=== PATIENT | female | born 1995 | race Caucasian/White ===

== ENCOUNTER 2021-09-20 03:04 | Emergency (ER) | payer MEDICAID, SELFPAY ==
[2021-09-20 03:13] VITALS: BP 139/93; PULSE 117; RESP 18; TEMP 36.7; O2SAT 95
--- NOTE | 2021-09-20 03:23 | W.ED.GENAD ---
Discharge Plan Disposition Patient Disposition: HOME Condition: Good Discharge Details Clinical Impression: URI (upper respiratory infection) Primary Care Provider: Unknown,Unknown ED Provider: Pepe Garner Home Meds and New Rx's Prescriptions: New doxycycline hyclate 100 mg tablet 100 mg PO BID Qty: 20 RF: 0 loratadine 10 mg capsule 10 mg PO DAILY Qty: 14 RF: 0 Discharge Instructions Instructions: Upper Respiratory Infection (ED) Additional Instructions: At this time your symptoms appear consistent with a mild viral upper respiratory infection. You have been tested for Covid and you will be contacted with the results. Please take the loratadine as directed to help with your congestion. Use the Brianna pot as we discussed together. If your symptoms persist and you develop fever, worsening cough, and productive sputum please take the antibiotic as directed, otherwise I would not use the antibiotic. Please stop smoking. If you notice any worsening of your symptoms, or any new symptoms such as vomiting, diarrhea, fever, chills, shortness of breath, chest pain, numbness, weakness, or fainting , please return immediately to the emergency department for reevaluation. Please follow up with your primary care provider as soon as possible for reassessment and reevaluation. As always, it was a pleasure participating in your medical care today. Medical Decision Making 26-year-old female presents today for evaluation of cough, congestion. Patient states it is been present for the last day or 2. She does work at a local [employer]. She has not received her Covid vaccine. She denies any fever or chills. She denies any hemoptysis. She denies any pleuritic chest pain. She is not on any control. No other complaints at this time. She denies any other sick contacts. Physical exam is unremarkable, lung sounds clear. Mild subjective congestion. Minimally erythematous posterior oropharynx, no tonsillar enlargement or exudate. Symptoms consistent with a mild viral upper respiratory infection. Will recommend loratadine as an outpatient basis. We will Covid test here. Recommend that she starts taking antibiotic if she develops fever, cough, or worsening symptoms. Discussed red flags which to return. I have extensively reviewed the treatment plan and discharge instructions with the patient. I have addressed all patient concerns at this time. The patient was made aware of what symptoms to monitor for that would warrant a return to the emergency department. Discussed the plan with the patient, they demonstrate verbal understanding and agreement with our assessment and plan at this time. The documentation in this chart was dictated using [email or web address] dictation software. Please excuse any dictation errors. HPI General Date/Time Provider Initiated Documentation: 09/20/21 03:12. HPI Narrative: 26-year-old female presents today for evaluation of cough, congestion. Patient states it is been present for the last day or 2. She does work at a local gas station. She has not received her Covid vaccine. She denies any fever or chills. She denies any hemoptysis. She denies any pleuritic chest pain. She is not on any control. No other complaints at this time. She denies any other sick contacts. Related Data Home Medications Medication Instructions Recorded Confirmed doxycycline hyclate 100 mg PO BID #20 tab 09/20/21 loratadine 10 mg PO DAILY #14 cap 09/20/21 Previous Rx's Medication Instructions Recorded doxycycline hyclate 100 mg PO BID #20 tab 09/20/21 loratadine 10 mg PO DAILY #14 cap 09/20/21 General Stated Complaint: RespSymp BASILIA: 4 Review of Systems All systems reviewed & are unremarkable except as noted in HPI and below PFSH All Active Problems URI (upper respiratory infection) (Acute) Social History Smoking/Tobacco Use Status: Current every day Tobacco Type: cigarettes Smoking risk assessment performed?: Yes Alcohol Intake: never Drug use: Never Substance use type: does not use Do you feel safe at home: Yes Do you feel safe in your relationship?: Yes Exam Narrative Exam Narrative: 1.Const: Well-nourished, Well-developed, appearing stated age 2.Eyes: PERRL, no conjunctival injection, and symmetrical lids. 3.ENT: Atraumatic external nose and ears. Moist MM. Neck: Symmetric, trachea midline, No thyromegaly. 4.CVS: +S1/S2, No murmurs or gallops. Peripheral pulses 2+ and equal in all extremities. Brisk capillary refill in all extremities. 5.RESP: Unlabored respiratory effort. Clear to auscultation bilaterally. No wheezes rales or rhonchi 6.GI: Soft, Nontender/Nondistended, No hepatosplenomegaly. No guarding or rebound. 7.MSK: Normocephalic/Atraumatic, Extremities w/o deformity or ttp No cyanosis or clubbing, Normal movement of all extremities 8.Skin: Warm, Dry. No rashes or lesions. 9.Neuro: notch grinder II-XII grossly intact. Sensation grossly intact, no focal neurologic deficits. 10.Psych: (AAO) x3. Appropriate mood and affect Course Vital Signs Vital signs: Vital Signs Temperature 36.7 C 09/20/21 03:13 Pulse 117 H 09/20/21 03:13 Respiratory Rate 18 09/20/21 03:13 Blood Pressure 139/93 H 09/20/21 03:13 Pulse Oximetry 95 09/20/21 03:13 Temperature 36.7 C 09/20/21 03:13 Temperature Source Tympanic 09/20/21 03:13 Pulse 117 H 09/20/21 03:13 Respiratory Rate 18 09/20/21 03:13 Respiratory Effort 09/20/21 03:17 Respiratory Depth Normal 09/20/21 03:16 Blood Pressure 139/93 H 09/20/21 03:13 Blood Pressure Position Supine 09/20/21 03:13 Pulse Oximetry 95 09/20/21 03:13 Oxygen Delivery Method Room Air 09/20/21 03:13 Oxygen Flow Rate 0 09/20/21 03:13 Pain Level 0 09/20/21 03:13
[2021-09-21 11:38] LABS: COVID-19 RT-PCR UVMMC Result Negative (Negative)
== END 2021-09-20 03:39 | disposition home or self-care (01) ==
PROVIDERS: Emergency Provider Student in an Organized Health Care Education/Training Program
DX: J06.9 Acute upper respiratory infection, unspecified (principal); R05.1 Acute cough; R09.81 Nasal congestion; Z20.822 Contact with and (suspected) exposure to COVID-19
CPT/HCPCS: 99282; U0003